=== PATIENT | female | born 1990 | race Caucasian/White ===

== ENCOUNTER 2016-12-02 09:45 | Inpatient (IN) | payer BC ==
[2016-12-02] MEDS ORDERED: OBEPIDURAL* 250 ML ONE (12:15)
[2016-12-02] MEDS ORDERED: fentaNYL* 50 MCG/ML 2 ML VIAL (100 MCG VIAL) ONE (12:16)
[2016-12-02 12:23] LABS: Hematocrit 37 % (35-47); Hemoglobin 12.5 g/dl (12.0-16.0); Mean Corpuscular HGB Conc 34 g/dl (31-36); Mean Corpuscular Hemoglobin 31 pg (27-31); Mean Corpuscular Volume 92 fL (80-97); Mean Platelet Volume 9 um3 (7.4-10.4); Red Blood Count 4.03 10^6/ul (4.0-5.4); Red Cell Distribution Width 14 % (10.5-15); White Blood Count 11.1 10^3/ul (3.5-10.8)
[2016-12-02] MEDS ORDERED: Famotidine TAB* 20 MG PO PRN (12:56)
[2016-12-02] MEDS ORDERED: Sodium Citrate/Citric Acid* 15 ML UDC PO PRN (12:56)
[2016-12-02] MEDS ORDERED: Phenylephrine IV* 40 MCG/ML 10 ML SYRINGE IV PUSH PRN ×2 (12:56)
[2016-12-02] MEDS ORDERED: Oxytocin in LR* 20 UNITS/1,000 ML BAG IVPB ONE (16:09)
[2016-12-02] MEDS ORDERED: Oxytocin in LR* 20 UNITS/1,000 ML BAG IVPB SCH ×2 (17:00→18:37)
[2016-12-02] MEDS ORDERED: RHO D Immune Globulin (HUMAN)* 300 MCG = 1,500 I.U. INJ IM ONE (18:34)
[2016-12-02] MEDS ORDERED: Acetaminophen TAB* 325 MG PO PRN (18:34)
[2016-12-02] MEDS ORDERED: oxyCODONE/Acetamin 5/325 MG* TAB PO PRN (18:34)
[2016-12-02] MEDS ORDERED: Lidocaine 1% MPF* 2 ML VIAL ONE (20:33)
[2016-12-02] MEDS: Dibucaine 1% 28.35 GM TUBE PR PRN (21:11)
[2016-12-02] MEDS: Witch Hazel PAD* JAR TOPICAL PRN (21:11)
[2016-12-02] MEDS: Docusate CAP* 100 MG PO SCH (23:07)
[2016-12-03 07:58] LABS: Hematocrit 31 % (35-47); Hemoglobin 10.6 g/dl (12.0-16.0); Mean Corpuscular HGB Conc 34 g/dl (31-36); Mean Corpuscular Hemoglobin 31 pg (27-31); Mean Corpuscular Volume 92 fL (80-97); Mean Platelet Volume 9 um3 (7.4-10.4); Red Blood Count 3.38 10^6/ul (4.0-5.4); Red Cell Distribution Width 14 % (10.5-15); White Blood Count 12.3 10^3/ul (3.5-10.8)
[2016-12-03] MEDS: Ibuprofen TAB* 600 MG PO PRN ×2 (08:53→17:25)
[2016-12-03] MEDS: Docusate CAP* 100 MG PO SCH ×3 (08:53→22:48)
[2016-12-03] MEDS ORDERED: Ferrous Gluconate TAB* 324 MG TAB PO SCH (09:00)
[2016-12-03] MEDS: OBEPIDURAL* 250 ML EPIDURAL SCH (15:03)
[2016-12-04] MEDS: Ibuprofen TAB* 600 MG PO PRN ×2 (02:18→09:07)
[2016-12-04] MEDS: Witch Hazel PAD* JAR TOPICAL PRN (03:28)
[2016-12-04] MEDS: Dibucaine 1% 28.35 GM TUBE PR PRN (03:28)
[2016-12-04 07:53] VITALS: BP 137/78
[2016-12-04] MEDS: Docusate CAP* 100 MG PO SCH ×2 (09:07→13:55)
== END 2016-12-04 14:15 | disposition home or self-care (01) | DRG 542 ==
LOC: MCHOBOUT 09:45 → MCHOB 10:07
PROVIDERS: ADMIT Midwife; ATTEND Midwife
PROC: 10E0XZZ Delivery of Products of Conception, External Approach (ICD-10-PCS; principal; 2016-12-02)
PROC: 10907ZC Drainage of Amniotic Fluid, Therapeutic from Products of Conception, Via Natural or Artificial Opening (ICD-10-PCS; 2016-12-02)
PROC: 0DQR0ZZ Repair Anal Sphincter, Open Approach (ICD-10-PCS; 2016-12-02)
DX: O70.20 Third degree perineal laceration during delivery, unspecified (principal); Z88.1 Allergy status to other antibiotic agents; Z3A.38 38 weeks gestation of pregnancy; Z37.0 Single live birth; Z88.8 Allergy status to other drugs, medicaments and biological substances
CPT/HCPCS: 36415; 85025; 85027; 85461; 86850; 86900; 86901; A9270-GY; J2790; J3010

== ENCOUNTER 2018-06-06 07:32 | Inpatient (IN) | payer BC ==
[2018-06-06] MEDS ORDERED: ceFOXitin 2 GM IVPREMIX* 2 GM/50 ML BAG IVPB ONE (07:56)
[2018-06-06] MEDS ORDERED: Terbutaline INJ* 1 MG/ML VIAL ONE (08:29)
[2018-06-06] MEDS ORDERED: OXYTOCIN* 10 UNITS/ML 1 ML VIAL ONE (08:39)
[2018-06-06] MEDS ORDERED: Succinylcholine* 20 MG/ML 10 ML VIAL ONE (08:39)
[2018-06-06] MEDS ORDERED: Propofol* 10 MG/ML 20 ML BTL IV PUSH ONE (08:39)
[2018-06-06] MEDS ORDERED: Lidocaine 2% PF * 5 ML VIAL ONE (08:40)
[2018-06-06] MEDS ORDERED: Phenylephrine IV* 40 MCG/ML 10 ML SYRINGE ONE (08:41)
[2018-06-06] MEDS ORDERED: Morphine PF AMP (0.5MG/ML)* 5 MG/10 ML AMP ONE (08:45)
[2018-06-06 09:09] LABS: ABS Basophils 0 10^3/ul (0-0.2); ABS Eosinophils 0 10^3/ul (0-0.6); ABS Lymphocytes 1.6 10^3/ul (1.0-4.8); ABS Monocytes 0.5 10^3/ul (0-0.8); ABS Neutrophils 8.6 10^3/ul (1.5-7.7); ABS Nucleated RBC 0 10^3/ul; Eosinophil % 0.2 % (0-6); Hematocrit 40 % (35-47); Hemoglobin 13.6 g/dl (12.0-16.0); Lymphocyte % 14.7 % (25-47); Mean Corpuscular HGB Conc 34 g/dl (31-36); Mean Corpuscular Hemoglobin 32 pg (27-31); Mean Corpuscular Volume 92 fL (80-97); Mean Platelet Volume 9.8 fL (7.4-10.4); Nucleated Red Blood Cells % 0.1; Platelet Count 179 10^3/ul (150-450); Red Blood Count 4.32 10^6/ul (4.00-5.40); Red Cell Distribution Width 14 % (10.5-15); White Blood Count 10.7 10^3/ul (3.5-10.8)
[2018-06-06] MEDS ORDERED: fentaNYL* 50 MCG/ML 2 ML VIAL (100 MCG VIAL) IV PRN (09:21)
[2018-06-06] MEDS ORDERED: Ondansetron INJ* 2 MG/ML VIAL IV PRN ×2 (09:21→09:22)
[2018-06-06] MEDS ORDERED: Naloxone* 0.4 MG/ML 1 ML VIAL IV PRN ×2 (09:21→09:22)
[2018-06-06] MEDS ORDERED: oxyCODONE/Acetamin 5/325 MG* TAB PO PRN ×3 (09:22→10:07)
[2018-06-06] MEDS ORDERED: diPHENhydraMINE IV* 50 MG/ML 1 ml VIAL (BENADRYL) IV PRN (09:22)
[2018-06-06] MEDS ORDERED: Nalbuphine* 10 MG/ML 1 ML VIAL IV PRN (09:22)
[2018-06-06] MEDS ORDERED: RHO D Immune Globulin (HUMAN)* 300 MCG = 1,500 I.U. INJ IM ONE (10:07)
[2018-06-06] MEDS ORDERED: Dibucaine 1% 28.35 GM TUBE PR PRN (10:07)
[2018-06-06] MEDS ORDERED: Acetaminophen TAB* 325 MG PO PRN (10:07)
[2018-06-06] MEDS ORDERED: Witch Hazel PAD* JAR TOPICAL PRN (10:07)
[2018-06-06] MEDS ORDERED: Glycerin ADULT SUPP PR PRN (10:07)
[2018-06-06] MEDS ORDERED: Terbutaline INJ* 1 MG/ML VIAL SUBCUT ONE (10:11)
--- NOTE | 2018-06-06 10:36 | HP ---
General Information - Reason for Visit contractions - General Information Maternal Age: 28 Grav: 3 Para: 1 SAB: 1 IEA: 0 Estimated Due Date: 06/22/18 Determined By: Early Ultrasound Gestational Age in Weeks/Days: 37 5/7 weeks Maternal Blood Type and Rh: O Negative - Results this Serology/RPR Result: Non-Reactive Rubella Result: Immune HBsAg Result: Negative HIV Result: Negative GBS Culture Result: Negative Past Medical History Delivery History: See Records Pertinent Past Medical History: See Records Pertinent Past Surgical History: See Records Pertinent Family History: See Records - Antepartal Records Antepartal Records: Reviewed, Complicated by: - breech/active labor/ spontaneous rupture of mambranes Review of Systems Constitutional: Uncomfortable CV Complaint: No Respiratory: Shortness of Breath: No Gastrointestinal: No Nausea/Vomiting Genitourinary: Leaking Fluid, No Dysuria, No Bleeding Musculoskeletal: No Complaint Neurological: No Headache Movement: Normal Exam Allergies/Adverse Reactions: Allergies azithromycin Allergy (Verified 06/06/18 08:09) Hives clarithromycin Allergy (Verified 06/06/18 08:09) Unknown Reaction Details guaifenesin Allergy (Verified 06/06/18 08:09) Unknown Reaction Details MS Ethanol [From Naldecon EX Syrup] Allergy (Verified 12/02/16 10:43) Unknown Reaction Details phenylpropanolamine Allergy (Verified 06/06/18 08:09) Unknown Reaction Details Lab Values - Entire Visit: Laboratory Tests 06/06/18 06/06/18 08:35 08:35 WBC 10.7 RBC 4.32 Hgb 13.6 Hct 40 MCV 92 MCH 32 H MCHC 34 RDW 14 Plt Count 179 MPV 9.8 Neut % (Auto) 80.2 Lymph % (Auto) 14.7 L Addison % (Auto) 4.5 Eos % (Auto) 0.2 Baso % (Auto) 0.4 Absolute Neuts (auto) 8.6 H Absolute Lymphs (auto) 1.6 Absolute Monos (auto) 0.5 Absolute Eos (auto) 0 Absolute Basos (auto) 0 Absolute Nucleated RBC 0 Nucleated RBC % 0.1 Blood Type O Negative Antibody Screen Positive Antibody Identification Anti-D Direct Antiglob Test Negative - Measurements Pre- Weight: 190 lb 0.016 oz - Exam Breast: Breast Exam Deferred CVA: No CVA Tenderness Extremities: No Edema Heart: Normal Rhythm/Heart Sounds HEENT: No Significant Findings Lungs: Clear Bilaterally Rectal: Rectal Exam Deferred Reflexes: DTR 2+ Thyroid: No Thyromegaly - Abdominal Exam Abdomen Exam: Non-Tender - Ultrasound/Biophysical Profile Ultrasound Status: Bedside Exam Ultrasound Findings: confimred breech RSA Targeted Exam Findings Cervical Exam: 8cm Effacement: 100% Station: -2 Presenting Part: Breech Membrane Status: SROM Amniotic Fluid Evaluation: Gross Rupture EFM Findings - External Monitor Findings Baseline Heart Rate: 140 External Monitor Findings: No Pattern of Variable or Late Decelerations, Variability Moderate Contractions: Moderate - q 4 Assessment/Plan - Obstetrical Risk Factors Obstetrical Risk Factors: Breech - Plan Plan: C/S Delivery - pt in acitve labor recommend proceed with primary section. Pt aware of risk benfits of surgery to proceed to main OR.
[2018-06-06] MEDS ORDERED: Oxytocin in LR* 20 UNITS/1,000 ML BAG IVPB SCH (11:00)
[2018-06-06] MEDS: Simethicone TAB* 80 MG TAB.CHEW PO SCH ×3 (14:04→21:27)
[2018-06-06] MEDS: Docusate CAP* 100 MG PO SCH ×2 (14:04→21:27)
[2018-06-06] MEDS: Ketorolac INJ* 30 MG/ML 1 ML VIAL IV PRN ×2 (17:30→23:12)
--- NOTE | 2018-06-07 03:42 | OP ---
DATE OF OPERATION: 06/06/18 - ROOM #103 DATE OF : 86 SURGEON: Haley Yeung MD DRAGLINE MECHANIC: Yeyo Pope MD ANESTHESIOLOGIST: Dr. Degroot. ANESTHESIA: Spinal. PRE-OP DIAGNOSIS: Intrauterine , right sacrum anterior darrin breech 37 5/7th weeks active labor spontaneous rupture of membrane. POST-OP DIAGNOSIS: Intrauterine , right sacrum anterior darrin breech 37 5/7th weeks active labor spontaneous rupture of membrane, delivered. PROCEDURE PERFORMED: Primary low transverse section. ESTIMATED BLOOD LOSS: 500 cc. FLUIDS: 1400 cc of crystalloid. URINE OUTPUT: Jets of yellow urine. FINDINGS: Revealed a darrin breech male , Apgars 81 minute, 9 at 5 minute. Weight is still pending. No evidence of nuchal cord. No meconium. No evidence of intrauterine synechiae or septum. Normal appearing placenta, 3- vessel cord manually extracted intact. Normal tubes and ovaries. COMPLICATIONS: None apparent. DISPOSITION: Stable to recovery room. DESCRIPTION OF PROCEDURE: The patient was placed in dorsal lithotomy position. Abdomen was prepped and draped in the sterile standard fashion. Anesthesia was tested to appropriate level. The patient was identified with universal protocol for correct procedure, patient and position, incision was made to the skin with scalpel. This was carried down to the fascia. Fascia was scored in the midline, extended laterally and superiorly using curved Wheeler scissors, superiorly and inferiorly with blunt and sharp dissection. Peritoneum was then entered bluntly, and extended bluntly. Bladder blade was inserted. The low uterine segment was identified, tented up with an Allis, incision was made with the scalpel. This was carried down through to membranes. Bandage scissors were used to extend the incision laterally and superiorly, clear fluid was noted. was delivered right sacrum anterior, anterior shoulder right first delivered then left, head delivered spontaneously. No evidence of nuchal cord. Cord was allowed to pulse and then clamped at one minute and cut and then infant was handed off to waiting guest relation officer. Appropriate cord blood was then obtained. Placenta was then manually extracted posterior insert and right fundal noted to be intact 3- vessel cord without evidence of abnormalities. The uterus was then exteriorized , wiped clean with moist laparotomy sponge, inside the uterine cavity noted be free of any membranes or placental tissue. Uterine cavity, the uterine hysterotomy site itself was reapproximated using 0 Vicryl 2 layers, first layered running locked 0- Vicryl, second layer running imbricated. The tubes and ovaries are noted to have a normal appearance. The uterus was returned intraabdominally. Colic gutters were lavaged. The hysterotomy site was noted to be hemostatic. The peritoneum was clamped with Kimberly x3 and the peritoneum was then reapproximated with 3-0 Vicryl in a running fashion. Subfascial area was visualized. Hemostasis assured and the fascia was reapproximated using 0 Vicryl x2 in a running fashion. The subcu was lavaged. Hemostasis was assured with Bovie coagulation and the subcutaneous Camper's fascia was reapproximated using 2-0 Vicryl in interrupted fashion, 4-0 Monocryl was then placed in a subcuticular fashion. Mastisol and Steri's were applied. All sponges, instrument and blade counts were correct at the case. The patient tolerated the procedure well and went to recovery room in stable condition. [id number]/[facility] #: [id number] M[facility]ASS[facility]T HOSPITALGeoffrey
[2018-06-07] MEDS: Ibuprofen TAB* 600 MG PO PRN ×3 (05:25→18:31)
[2018-06-07 06:46] LABS: ABS Basophils 0 10^3/ul (0-0.2); ABS Eosinophils 0 10^3/ul (0-0.6); ABS Lymphocytes 1.2 10^3/ul (1.0-4.8); ABS Monocytes 0.5 10^3/ul (0-0.8); ABS Neutrophils 7.9 10^3/ul (1.5-7.7); ABS Nucleated RBC 0 10^3/ul; Eosinophil % 0.3 % (0-6); Hematocrit 34 % (35-47); Hemoglobin 11.6 g/dl (12.0-16.0); Lymphocyte % 12.5 % (25-47); Mean Corpuscular HGB Conc 34 g/dl (31-36); Mean Corpuscular Hemoglobin 32 pg (27-31); Mean Corpuscular Volume 93 fL (80-97); Mean Platelet Volume 9.3 fL (7.4-10.4); Nucleated Red Blood Cells % 0; Platelet Count 145 10^3/ul (150-450); Red Blood Count 3.68 10^6/ul (4.00-5.40); Red Cell Distribution Width 14 % (10.5-15); White Blood Count 9.7 10^3/ul (3.5-10.8)
[2018-06-07] MEDS ORDERED: Ferrous Gluconate TAB* 324 MG TAB PO SCH (09:00)
[2018-06-07] MEDS: Simethicone TAB* 80 MG TAB.CHEW PO SCH ×4 (09:19→20:34)
[2018-06-07] MEDS: Docusate CAP* 100 MG PO SCH ×3 (09:19→20:34)
[2018-06-07] MEDS: oxyCODONE/Acetamin 5/325 MG* TAB PO PRN ×3 (12:22→20:34)
[2018-06-08] MEDS: oxyCODONE/Acetamin 5/325 MG* TAB PO PRN ×5 (00:17→21:15)
[2018-06-08] MEDS: Ibuprofen TAB* 600 MG PO PRN ×4 (00:17→21:15)
[2018-06-08] MEDS: Simethicone TAB* 80 MG TAB.CHEW PO SCH ×4 (08:21→21:15)
[2018-06-08] MEDS: Docusate CAP* 100 MG PO SCH ×3 (08:21→21:15)
[2018-06-09] MEDS: oxyCODONE/Acetamin 5/325 MG* TAB PO PRN ×3 (01:10→09:56)
[2018-06-09] MEDS: Ibuprofen TAB* 600 MG PO PRN (04:26)
[2018-06-09 07:24] VITALS: BP 119/64
[2018-06-09] MEDS: Docusate CAP* 100 MG PO SCH (08:21)
[2018-06-09] MEDS: Simethicone TAB* 80 MG TAB.CHEW PO SCH (08:21)
== END 2018-06-09 10:58 | disposition home or self-care (01) | DRG 540 ==
LOC: MCHOBOUT 07:32 → MCHOB 07:58
PROVIDERS: ADMIT Obstetrics & Gynecology; ATTEND Obstetrics & Gynecology
PROC: 10D00Z1 Extraction of Products of Conception, Low, Open Approach (ICD-10-PCS; principal; 2018-06-06 08:45)
DX: O32.8XX0 Maternal care for other malpresentation of fetus, not applicable or unspecified (principal); O42.02 Full-term premature rupture of membranes, onset of labor within 24 hours of rupture; Z3A.37 37 weeks gestation of pregnancy; Z37.0 Single live birth
CPT/HCPCS: 36415; 85025; 85461; 86850; 86870; 86880; 86900; 86901; 88307; 90686; A9270-GY; J0330; J0694; J1200; J1885; J2590; J2704; J2790; J3105